=== PATIENT | female | born 1960 | race Caucasian/White ===

== ENCOUNTER 2016-07-13 09:48 | Emergency (ER) | payer BC ==
[2016-07-13 10:00] VITALS: BP 145/72
--- NOTE | 2016-07-13 10:06 | UC ---
Skin Complaint HPI - HPI Summary HPI Summary: scraped right palm on a wood working tool yesterday is concerned because tetanus is not up to date - History of Current Complaint Chief Complaint: UCSkin Time Seen by Provider: 07/13/16 10:06 Stated Complaint: HAND LACERATION Hx Obtained From: Patient ?: No Onset/Duration: Sudden Onset, Lasting Days - 1 Timing: Constant Onset Severity: Mild Current Severity: Mild Location: Discrete - small abrasion left palm near thumb Aggravating: Nothing Alleviating: Other - using essential oils for treatment Associated Signs & Symptoms: Positive: Negative - Allergy/Home Medications Allergies/Adverse Reactions: Allergies Allergy/AdvReac Type Severity Reaction Status Date / Time No Known Allergies Allergy Verified 02/28/15 13:00 Home Medications: Home Medications NK [No Home Medications Reported] 07/13/16 [History Confirmed 07/13/16] Review of Systems Constitutional: Negative Skin: Other - small abrasion left hand wound clean no evidence of infection Eyes: Negative ENT: Negative Respiratory: Negative Cardiovascular: Negative Gastrointestinal: Negative Genitourinary: Negative Motor: Negative Neurovascular: Negative Musculoskeletal: Negative Neurological: Negative Psychological: Negative All Other Systems Reviewed And Are Negative: Yes PMH/Surg Hx/FS Hx/Imm Hx Previously Healthy: No Endocrine History Of: Denies: Diabetes, Thyroid Disease Cardiovascular History Of: Reports: Hypertension - borderline Denies: Cardiac Disorders Respiratory History Of: Denies: COPD, Asthma GI/ History Of: Denies: Ulcer Cancer History Of: Denies: Breast Cancer - Surgical History Surgical History: Yes Surgery Procedure, Year, and Place: c-sections 1994, 1988. tubal ligation. lipoma removal. T&A - Family History Known Family History: Positive: None Family History: no cardio vascular issues in family lineage - Social History Occupation: Employed Full-time - teacher Lives: With Family Alcohol Use: Occasionally Substance Use Type: None Smoking Status (MU): Never Smoked Tobacco Have You Smoked in the Last Year: No Physical Exam Triage Information Reviewed: Yes Appearance: Well-Appearing, No Pain Distress, Well-Nourished Vital Signs: Initial Vital Signs Temp 97.1 F 07/13/16 09:55 Pulse 58 07/13/16 09:55 Resp 16 07/13/16 09:55 BP 145/72 07/13/16 09:55 Pulse Ox 98 07/13/16 09:55 Vital Signs Reviewed: Yes Eye Exam: Normal Eyes: Positive: Conjunctiva Clear ENT Exam: Normal ENT: Positive: Normal ENT inspection, Hearing grossly normal. Negative: Nasal congestion, Nasal drainage, Trismus, Muffled/hoarse voice Neck exam: Normal Neck: Positive: Supple, Nontender Respiratory Exam: Normal Respiratory: Positive: No respiratory distress, No accessory muscle use Cardiovascular Exam: Normal Cardiovascular: Positive: RRR, Pulses Normal, Brisk Capillary Refill Musculoskeletal Exam: Normal Musculoskeletal: Positive: Strength Intact, ROM Intact, No Edema Neurological Exam: Normal Neurological: Positive: Alert, Muscle Tone Normal Psychological Exam: Normal Psychological: Positive: Normal Response To Family Skin Exam: Other - small abrasion left palm Course/Dx - Course Course Of Treatment: up date Boostrix, wound care, re-check prn - Differential Diagnoses - Skin Complaint Differential Diagnoses: Cellulitis, Impetigo, Other - abrasion - Diagnoses Provider Diagnoses: Abrasion left palm, up date tetanus Discharge - Discharge Plan Condition: Stable Disposition: HOME Patient Education Materials: Diphtheria/Acellular Pertussis/Tetanus Booster Vaccine (Tdap) (Injection), Abrasion (ED) Referrals: Sandor Kenney MD [Primary Care Provider] - If Needed (if needed)
[2016-07-13] MEDS ORDERED: Tetan/Diph/Pertus SYR(Tdap)* 0.5 ML SYR(BOOSTRIX) use SYR IM ONE (10:09)
== END 2016-07-13 10:30 | disposition home or self-care (01) ==
LOC: UCEAST 09:48
DX: S60.512A Abrasion of left hand, initial encounter (principal); W45.8XXA Other foreign body or object entering through skin, initial encounter; Y93.9 Activity, unspecified; Y92.9 Unspecified place or not applicable; Z23 Encounter for immunization
CPT/HCPCS: 90471; 90715; 99211; G0463

== ENCOUNTER 2018-07-28 09:14 | Day surgery (SDC) | payer BC ==
--- NOTE | 2018-07-24 15:14 | HP ---
AMENDED REPORT NOW INCLUDES DESIGNATED COSIGNER PREOPERATIVE HISTORY AND PHYSICAL: DATE OF SURGERY/ADMISSION: 07/28/18 DATE OF OFFICE VISIT/ENCOUNTER: 07/23/18 ATTENDING SURGEON: Nallely Mason MD * (DICTATED BY GUY CLARK) PROCEDURE: Excision mass, right thumb. CHIEF COMPLAINT: Mass on right thumb. HISTORY OF PRESENT ILLNESS: This is a 57-year-old female who complains of a painful lump on the dorsal aspect of her right thumb. It has been present for approximately 7 months. She does not recall any specific injury. It bothers her when she uses tools. She rates her pain as 5/10. She denies any associated numbness or tingling. 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 The patient would like to have it surgically removed. PAST MEDICAL HISTORY: Possible allergies, currently being worked up. PAST SURGICAL HISTORY: 1. Tubal ligation. 2. x2. 3. Tonsillectomy. 4. Lipoma excision from back. The patient denies any problems with anesthesia in the past. MEDICATIONS: 1. Calcium daily. 2. Multivitamin daily. 3. Vitamin C 500 mg daily. 4. Vitamin D. 5. Probiotics. ALLERGIES: No known drug allergies. FAMILY MEDICAL HISTORY: Cancer and hypertension. 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 She denies tobacco use. She does use marijuana through a vaporizer on occasion and drinks alcohol on occasion. REVIEW OF SYSTEMS: Negative for general, cephalic, and cardiovascular. Respiratory is positive for congestion related to allergies. Negative GI, , other musculoskeletal, integumentary, endocrine, neurologic, and hematologic symptoms. Infectious Disease: Negative for MRSA, hepatitis C, HIV. PHYSICAL EXAMINATION GENERAL: Well-developed, well-nourished, 57-year-old female in no acute distress. VITAL SIGNS: Height 5 feet 2 inches, weight 169 pounds. Blood pressure 122/86 , pulse rate 64. HEENT: Normocephalic, atraumatic. Pupils are equal, round, and reactive to light and accommodation. Extraocular movements are intact. Throat is clear. NECK: Supple. No palpable lymph nodes. PULMONARY: Lungs are clear to auscultation bilaterally. No wheezes, rales or rhonchi. CARDIOVASCULAR: Regular rate and rhythm. S1, S2. No murmurs, rubs or gallops. No edema. ABDOMEN: Positive bowel sounds, soft, and nontender. MUSCULOSKELETAL: On exam of her right thumb, there is a cystic mass on the dorsal aspect at the IP joint. She has good range of motion in the joint. The cyst is tender to palpation. Neurovascular function is intact. Skin is intact. NEUROLOGIC: Alert and oriented x3. Cranial nerves II through XII are intact. Sensation is intact to light touch. IMAGING STUDIES: X-rays, AP, lateral and oblique of the right thumb shows a small osteophyte on the dorsal aspect of the IP joint. IMPRESSION: Right thumb mucous cyst. PLAN: The patient is scheduled to undergo an excision mass, right thumb on with Dr. Mason. She will return to the office 10 days postop for followup and suture removal. She will plan on using [id number] medications, ibuprofen and/or Tylenol for postoperative pain management. GUY CLARK [id number]/[facility] #: [id number] [place]
[~2018-07-28 09:14] MED LIST: Buffered Lidocaine 1% SYRIN* 1 ML/SYRINGE INTRADERM ONE; Dexamethasone TAB* 4 MG PO ONE; DiMENhydriNATE IV* 50 MG/ML VIAL IV PUSH PRN; Famotidine IV* 10 MG/ML 2 ML (20 mg) IV ONE; Lactated Ringers 1000 ML Bag* 1,000 ML IV SCH; Lidocaine 1% INJ* 10 MG/ML 30 ML SDV ONE; Naloxone* 0.4 MG/ML 1 ML VIAL IV PRN; Ondansetron TAB* 4 MG PO ONE; PROCHLORPERAZINE INJ 5 MG/ML 2 ML VIAL IV PRN; fentaNYL* 50 MCG/ML 2 ML VIAL (100 MCG VIAL) IV PRN; oxyCODONE/Acetamin 5/325 MG* TAB PO PRN
[2018-07-28] MEDS ORDERED: Ondansetron ODT TAB* 4 MG ONE (09:29)
[2018-07-28] MEDS ORDERED: Dexamethasone TAB* 4 MG ONE (09:30)
[2018-07-28] MEDS ORDERED: Famotidine IV* 10 MG/ML 2 ML (20 mg) ONE (09:30)
[2018-07-28] MEDS ORDERED: fentaNYL* 50 MCG/ML 2 ML VIAL (100 MCG VIAL) ONE (10:42)
[2018-07-28] MEDS ORDERED: Midazolam* 1 MG/ML 5 ML VIAL (5 MG) ONE (10:42)
[2018-07-28] MEDS ORDERED: Lidocaine 2% PF * 5 ML VIAL ONE (11:04)
[2018-07-28] MEDS ORDERED: Propofol* 10 MG/ML 20 ML BTL ONE (11:04)
[2018-07-28] MEDS ORDERED: Ketorolac INJ* 30 MG/ML 1 ML VIAL ONE (11:04)
[2018-07-28 11:39] VITALS: BP 125/88
--- NOTE | 2018-07-28 20:14 | OP ---
DATE OF OPERATION: 07/28/18 [facility] DATE OF : 64 SURGEON: Nallely Mason MD SPECIAL POLICE OFFICER: GUY Fontaine ANESTHESIA: Local MAC. PRE-OP DIAGNOSIS: Right thumb mass. POST-OP DIAGNOSIS: Right thumb mass. OPERATIVE PROCEDURE: Removal of right thumb mass. ESTIMATED BLOOD LOSS: Zero. TOURNIQUET TIME: Approximately 10 minutes. INDICATIONS FOR PROCEDURE: Eva is a 57-year-old woman who has a painful mass on the dorsal aspect of her right thumb at the IP joint. She presents for removal. There is an osteophyte on x-ray, and clinically, it is a mucous cyst. DESCRIPTION OF PROCEDURE: The patient was brought to the operating room, was given a sedation anesthetic and a digital block with 10 cc of 1% plain lidocaine. The skin of her right hand and forearm was prepped and draped in the usual sterile fashion. The hand and forearm were exsanguinated and the tourniquet elevated to 250 mmHg. An H-shaped incision was made on the dorsal aspect of the IP joint of the right thumb. The skin flaps were elevated off the mass and the extensor tendon. There was a ganglion cyst and this was excised and sent for pathology. Either side of the extensor tendon was incised longitudinally and then the underlying osteophytes at the DIP joint were removed with a rongeur. The wound was irrigated and the skin edges reapproximated with 4-0 nylon suture. The wound was dressed with Xeroform, 4x4 , Webril, and Coban. The patient tolerated the procedure well and was brought to the recovery room in good condition. [id number]/[facility] #: [id number] [facility]
== END 2018-07-28 12:06 | disposition home or self-care (01) ==
LOC: OREAST 09:14
PROVIDERS: ATTEND Orthopaedic Surgery
DX: M67.441 Ganglion, right hand (principal); M77.8 Other enthesopathies, not elsewhere classified; M25.741 Osteophyte, right hand
CPT/HCPCS: 88305; A9270-GY; J1885; J2250; J2704; J3010; J8540